=== PATIENT | female | born 1955 | race Caucasian/White ===

== ENCOUNTER 2019-07-03 15:31 | Inpatient (IN) | payer OTHER ==
[~2019-07-03] VITALS: Ht 160 cm; Wt 71.7 kg
[2019-07-03 15:37] VITALS: BP 167/102
--- NOTE | 2019-07-03 15:49 | NUR ---
64 Y/O FEMALE BIBA WITH C/C OF HYPERGLYCEMIA. PER MEDIC REPORT, PT IS HOMELESS AND NONCOMPLIANT WITH MEDICATION. PT A/OX4. PER PT ALLERGIES TO PNC. MEDICAL HX OF DM. RX METFORMIN. DENIES V/N. PER PT DIARRHEA FOR "A NUMBER OF DAYS". CURRENT BS 396. SIDE RAIL X1.
[2019-07-03] MEDS ORDERED: NACL 0.9% 1,000 ML IV ONE (15:55)
[2019-07-03] MEDS ORDERED: METF500T2 PO (16:28)
[2019-07-03 16:41] LABS: BASOPHILS # (AUTO) 0.1 K/uL (0.00-0.22); EOSINOPHILS # (AUTO) 0.1 K/uL (0-0.4); EOSINOPHILS % (AUTO) 0.6 % (0.0-4.0); HEMATOCRIT 42.5 % (36-48); HEMOGLOBIN 14.1 g/dL (12.0-16.0); LYMPHOCYTES # (AUTO) 1.6 K/uL (2.5-16.5); MEAN CORPUSCULAR HEMOGLOBIN 31 pg (27-31); MEAN CORPUSCULAR HGB CONC 33 g/dL (33-37); MEAN CORPUSCULAR VOLUME 94.4 fL (80-94); MONOCYTES # (AUTO) 0.6 K/uL (0.8-1.0); MONOCYTES % (AUTO) 6.6 % (1.7-9.3); NEUTROPHILS % (AUTO) 74.8 % (42.2-75.2); PLATELET COUNT (AUTO) 338 K/uL (140-450); RED CELL DISTRIBUTION WIDTH 13.1 % (11.6-13.7); WHITE BLOOD COUNT (AUTO) 9.3 K/uL (4.8-10.8)
[2019-07-03 17:03] LABS: ALBUMIN 2.7 g/dL (3.4-5.0); ANION GAP 12.5 (8-16); CARBON DIOXIDE 28.1 mmol/L (21-32); CREATININE 0.7 mg/dL (0.6-1.3); POTASSIUM 3.6 mmol/L (3.5-5.1); TOTAL BILIRUBIN 0.2 mg/dL (0.0-1.0)
--- NOTE | 2019-07-03 17:55 | NUR ---
pt resting in bed ; side rail x1
[2019-07-03] MEDS ORDERED: NACL 0.9% 500 ML IV ONE (18:45)
[2019-07-03] MEDS ORDERED: INSULIN REGULAR, HUMAN 100 UNIT/ML VIAL SUBQ ONE (18:45)
[2019-07-03 18:54] LABS: APPEARANCE,URINE CLOUDY (CLEAR); BILIRUBIN,URINE NEGATIVE (NEGATIVE); BLOOD, URINE TRACE-I (NEGATIVE); COLOR,URINE YELLOW (YELLOW); LEUKOCYTE ESTERASE ,URINE NEGATIVE (NEGATIVE); NITRITE, URINE NEGATIVE (NEGATIVE); UGLUCOSE 3+ (NEGATIVE)
[2019-07-03 19:14] LABS: WBC,URINE NONE SEEN /HPF (0-5)
--- NOTE | 2019-07-03 19:14 | NUR ---
REPORT GIVEN TO MICKY SANFORD
[2019-07-03] MEDS ORDERED: ONDANSETRON 4 MG/2 ML VIAL IM/IVP PRN (19:25)
[2019-07-03] MEDS ORDERED: ACETAMINOPHEN 325 MG TAB PO PRN (19:25)
[2019-07-03] MEDS ORDERED: DOCUSATE SODIUM 100 MG GELCAP PO PRN (19:25)
[2019-07-03] MEDS ORDERED: HYDROcodone/APAP 5/325 MG 1 TAB TAB PO PRN (19:25)
[2019-07-03] MEDS ORDERED: DEXTROSE 50% 50 ML SYR IVP PRN (19:25)
[2019-07-03] MEDS ORDERED: MORPHINE SULFATE 2 MG/ML SYR IVP PRN (19:25)
[2019-07-03 20:15] VITALS: BP 172/89
--- NOTE | 2019-07-03 20:15 | NUR ---
ADMITTED A 64 YEAR OLD FEMALE VIA GURNEY FROM ED. RECEIVED REPORT FROM ED NURSE MICKY. PATIENT ALERT AND ORIENTED X4. NO APPARENT DISTRESS NOTED. DENIES PAIN NOR DISCOMFORT. SKIN IS INTACT. BED ON LOW POSITION. INTRODUCED SELF AND ORIENTED TO HOSPITAL ROUTINE AND ENVIRONMENT. CALL LIGHT WITHIN REACH. WILL CONTINUE TO MONITOR. Addendum: 07/04/19 at 0134 by Olga Key RN WITH IV ON LEFT AC 20G. SALINE LOCKED. PATIENT IS HOMELESS.
--- NOTE | 2019-07-03 20:20 | NUR ---
Patient will be admitted to [facility]. TRANSFERRED VIA GURNEY. Will go to room 119B. Belongings list completed. Report to MELISSA SANFORD.
[2019-07-03 20:52] LABS: MAGNESIUM 1.7 mg/dL (1.8-2.4); PHOSPHORUS 2.7 mg/dL (2.5-4.9); THYROID STIMULATING HORMONE 1.25 uIU/mL (0.34-3.74)
--- NOTE | 2019-07-03 21:10 | NUR ---
ROUNDS DONE. PATIENT ASLEEP IN BED. NO APPARENT DISTRESS NOTED. WILL CONTINUE TO MONITOR.
[2019-07-03] MEDS ORDERED: metFORMIN 500 MG TAB PO SCH (21:30)
[2019-07-03] MEDS ORDERED: MAGNESIUM OXIDE 400 MG TAB PO SCH (21:30)
[2019-07-03] MEDS ORDERED: hydrALAZINE 10 MG TAB PO SCH (21:35)
[2019-07-03] MEDS: NACL 0.9% 1,000 ML IV SCH (21:46)
[2019-07-03] MEDS: BLOOD GLUCOSE MONITORING 1 DEV DEV FS SCH (21:57)
[2019-07-03] MEDS: INSULIN LISPRO SLIDING SCALE 100 UNITS/ML VIAL SUBQ PRN (21:58)
[2019-07-03] MEDS ORDERED: hydrALAZINE 10 MG TAB ONE (22:16)
[2019-07-03] MEDS ORDERED: hydrALAZINE 20 MG/ML VIAL IVP SCH (22:30)
[2019-07-03] MEDS ORDERED: LISINOPRIL 5 MG TAB PO SCH (22:30)
[2019-07-03 22:32] LABS: BARBITURATE, URINE NEG. ng/ml (NEG <=200); BENZODIAZEPINE, URINE NEG. ng/mL (NEG <=200); CANNABINOID, URINE NEG. ng/mL (NEG <=50); COCAINE, URINE NEG. ng/mL (NEG <=300); OPIATE, URINE NEG. ng/mL (NEG <=2000); PHENCYCLIDINE SCREEN,URINE NEG. ng/mL (NEG <=25)
--- NOTE | 2019-07-03 23:05 | NUR ---
PATIENT ASLEEP IN BED. NO APPARENT DISTRESS NOTED. VISIBLE CHEST RISE AND FALL NOTED. WILL CONTINUE TO MONITOR.
[2019-07-04] VITALS: BP 139/60
--- NOTE | 2019-07-04 01:00 | NUR ---
CHECKS DONE. PATIENT ASLEEP IN BED. BED ON LOW POSITION. NO APPARENT DISTRESS NOTED. WILL CONTINUE TO MONITOR.
--- NOTE | 2019-07-04 02:34 | NUR ---
ROUNDS DONE. PATIENT ASLEEP IN BED. NO APPARENT DISTRESS NOTED. BED ON LOW POSITION. VISIBLE CHEST RISE AND FALL NOTED. WILL CONTINUE TO MONITOR.
[2019-07-04 04:00] VITALS: BP 113/58
--- NOTE | 2019-07-04 04:30 | NUR ---
PATIENT ASLEEP IN BED. BED ON LOW POSITION. NO APPARENT DISTRESS NOTED. VISIBLE CHEST RISE AND FALL NOTED. WILL CONTINUE TO MONITOR.
[2019-07-04] MEDS: NACL 0.9% 1,000 ML IV SCH ×3 (05:09→23:08)
[2019-07-04 06:12] LABS: T4 (THYROXINE) 6.6 ug/dL (4.5-12.0)
[2019-07-04] MEDS: INSULIN LISPRO SLIDING SCALE 100 UNITS/ML VIAL SUBQ PRN ×4 (06:16→20:09)
--- NOTE | 2019-07-04 06:25 | NUR ---
PATIENT AWAKE IN BED. NO APPARENT DISTRESS NOTED. DENIES PAIN NOR DISCOMFORT. WILL CONTINUE TO MONITOR.
[2019-07-04] MEDS: BLOOD GLUCOSE MONITORING 1 DEV DEV FS SCH ×4 (06:32→20:09)
[2019-07-04 06:57] LABS: ANION GAP 13.1 (8-16); CARBON DIOXIDE 24.9 mmol/L (21-32); CREATININE 0.5 mg/dL (0.6-1.3)
[2019-07-04 07:04] LABS: BASOPHILS % (AUTO) 0.2 % (0.0-2.0); EOSINOPHILS # (AUTO) 0.1 K/uL (0-0.4); EOSINOPHILS % (AUTO) 0.8 % (0.0-4.0); HEMOGLOBIN 12.3 g/dL (12.0-16.0); LYMPHOCYTES % (AUTO) 25.7 % (20.5-51.1); MEAN CORPUSCULAR HEMOGLOBIN 31 pg (27-31); MEAN CORPUSCULAR HGB CONC 33 g/dL (33-37); MEAN CORPUSCULAR VOLUME 93.4 fL (80-94); MONOCYTES # (AUTO) 0.6 K/uL (0.8-1.0); MONOCYTES % (AUTO) 8.2 % (1.7-9.3); NEUTROPHILS # (AUTO) 5.1 K/uL (1.8-7.7); NEUTROPHILS % (AUTO) 65.1 % (42.2-75.2); PLATELET COUNT (AUTO) 301 K/uL (140-450); RED BLOOD CELL COUNT(AUTO) 3.96 MIL/uL (4.20-5.40); WHITE BLOOD COUNT (AUTO) 7.9 K/uL (4.8-10.8)
--- NOTE | 2019-07-04 07:05 | NUR ---
ENDORSED TO AM SHIFT FOR CONTINUITY OF CARE.
[2019-07-04 07:14] LABS: MAGNESIUM 1.4 mg/dL (1.8-2.4); PHOSPHORUS 2.7 mg/dL (2.5-4.9)
--- NOTE | 2019-07-04 07:32 | NUR ---
Shift report received from restaurant shift leader nurse. Pt is in bed in stable condition. Call light in reach.
[2019-07-04] MEDS ORDERED: MAG SULF 2000 MG/WATER PREMIX 100 ML IV ONE (07:35)
[2019-07-04 08:00] VITALS: BP 151/83
[2019-07-04] MEDS ORDERED: POTASSIUM CHLORIDE 10 MEQ TABER PO SCH (08:20)
[2019-07-04] MEDS ORDERED: MAG SULF 2000 MG/WATER PREMIX 50 ML IV ONE (08:20)
[2019-07-04] MEDS: metFORMIN 500 MG TAB PO SCH ×2 (08:32→17:47)
[2019-07-04] MEDS: LISINOPRIL 5 MG TAB PO SCH (08:32)
[2019-07-04] MEDS: POTASSIUM CHLORIDE 10 MEQ TABER PO SCH ×2 (08:33→20:05)
--- NOTE | 2019-07-04 08:51 | NUR ---
PATIENT HAS BEEN SCREENED AND CATEGORIZED MODERATE NUTRITION RISK. PATIENT WILL BE SEEN WITHIN 3-5 DAYS OF ADMISSION. 07/06/19 07/08/[address]
--- NOTE | 2019-07-04 10:00 | NUR ---
Pt is in bed in stable condition. Call light in reach.
[2019-07-04 12:00] VITALS: BP 161/87
--- NOTE | 2019-07-04 12:00 | NUR ---
Pt is in bed in stable condition. Call light in reach.
--- NOTE | 2019-07-04 14:02 | NUR ---
DC PLANNIN YRS OLD FEMALE PATIENT ADMITTED FROM ER WITH A DX OF UNCONTROLLED DIABETES. PT HAS A HISTORY OF DM. PT IS HOMELESS USES WHEELCHAIR TO AMBULATE. BS 400 ON ADMISSION ,REGULAR INSULIN GIVEN CONTINUE HOME MEDS DC PLAN SS EVALUATE FOR HOMELESSNESS FOR SAFE DISCHARGE. CM TO FOLLOW Addendum: 07/05/19 at 1028 by Bel Melvin CM DC PLANNING: PT EVALUATION DONE AND RECOMMEND SNF FOR PT .PATIENT AGREED TO GO TO SNF CURRENTLY PT IS HOMELESS. HIV CTS SPECIALIST HELPING WITH DISCHARGE NEEDS. BS 207 TODAY RECEIVED INSULIN COVERAGE MG LEVEL 1.5 MAG RIDER GIVEN CM TO FOLLOW Addendum: 07/05/19 at 1505 by Bel Melvin CM DC PLANNING PATIENT AGREED TO GO TO ANY SNF TO GET PHYSICAL THERAPY. [facility]ED [facility] , SPOKE WITH KARLA , [facility] CAN ACCEPT PT AND CAN GO TO ROOM 104A ACCEPTING WILL BE DR GILMAN . DC PLAN FOR TOMORROW 07/06/19 CM TO FOLLOW Addendum: 07/06/19 at 1101 by Bel Melvin DC PLANNING PT IS ACCEPTED TO [facility] ,EMELINA WITH [facility] WILL ARRANGE TRANSPORT PIECE GOODS CLERK TIME 1:30 PM NOTIFIED JASSI SANFORD
--- NOTE | 2019-07-04 14:34 | NUR ---
Pt is in bed in stable condition. Call light in reach.
[2019-07-04 16:00] VITALS: BP 159/91
--- NOTE | 2019-07-04 18:00 | NUR ---
Pt is in bed in stable condition. Call light in reach.
--- NOTE | 2019-07-04 19:30 | NUR ---
Shift report given to car shifter nurse. Pt is in bed in stable condition. Call light in reach.
--- NOTE | 2019-07-04 19:31 | NUR ---
REPORT RECEIVED FROM AM NURSE AT BEDSIDE. PT IN STABLE CONDITION. AAOX3-4. INTRODUCED SELF TO PT. BOARD UPDATED. NO COMPLAINTS OF PAIN. NO SOB. AFEBRILE. PT IS WHEELCHAIR BOUND. IV SITE R FA 24G RUNNING NS@100ML/HR PATENT AND INTACT. SKIN WARM, DRY, AND INTACT WITH NO OPEN WOUNDS. BED LOCKED IN LOW POSITION. CALL PETTIT WITHIN REACH. SAFETY PRECAUTION IN PLACE. ALL NEEDS MET AT THIS TIME.
--- NOTE | 2019-07-04 20:05 | NUR ---
K DUR GIVEN PO. BS 193. 2 UNITS OF HUMALOG GIVEN. PT TOLERATED WELL.
[2019-07-04] MEDS ORDERED: INFLUENZA VACCINE QUAD 0.5 ML SYR IMVAC PRN (22:05)
[2019-07-04] MEDS ORDERED: PNEUMOCOCCAL VACCINE 23 MCG/0.5 ML VIAL IMVAC PRN (22:05)
--- NOTE | 2019-07-04 22:05 | NUR ---
PT SLEEPING COMFORTABLY BUT AROUSABLE. NO S/S OF DISTRESS NOTED. WILL CONTINUE TO MONITOR.
--- NOTE | 2019-07-04 23:40 | NUR ---
PT SLEEPING COMFORTABLY BUT AROUSABLE. NO S/S OF DISTRESS NOTED. NO COMPLAINTS OF PAIN. NO SOB. AFEBRILE. WILL CONTINUE TO MONITOR.
[2019-07-05] VITALS: BP 142/74
--- NOTE | 2019-07-05 01:50 | NUR ---
PT AWAKE AND ALERT RETURNED FROM THE RESTROOM. NO S/S OF DISTRESS NOTED. WILL CONTINUE TO MONITOR.
--- NOTE | 2019-07-05 02:32 | NUR ---
REPORT GIVEN TO ASHLI SANOFRD. PT IN STABLE CONDITION.
--- NOTE | 2019-07-05 02:33 | NUR ---
RECEIVED PT FROM ANDREY NICOLE SHIFT NURSE FOR CONTINUITY OF CARE. PT AWAKE, ALERT ORIENTED X 4, AMBULATORY. POC DISCUSSED. PLACED IN LOW BED.
--- NOTE | 2019-07-05 04:21 | NUR ---
PT HAS NO COMPLAINTS WENT TO THE BATHROOM AMBULATORY WITH MINIMAL ASSIST. NO SOB NOTED
[2019-07-05] MEDS: BLOOD GLUCOSE MONITORING 1 DEV DEV FS SCH ×4 (06:08→20:51)
--- NOTE | 2019-07-05 06:08 | NUR ---
PT'S BS ID 171, PT IS NPO DUE FOR KIDNEY USD; DUPLEX THIS EARLY AM, THUS WAS PLACED ON NPO
[2019-07-05] MEDS: INSULIN LISPRO SLIDING SCALE 100 UNITS/ML VIAL SUBQ PRN ×4 (06:10→20:29)
[2019-07-05 06:25] LABS: BASOPHILS # (AUTO) 0.1 K/uL (0.00-0.22); BASOPHILS % (AUTO) 1.2 % (0.0-2.0); EOSINOPHILS % (AUTO) 0.3 % (0.0-4.0); HEMATOCRIT 37.8 % (36-48); HEMOGLOBIN 12.5 g/dL (12.0-16.0); LYMPHOCYTES # (AUTO) 1.8 K/uL (2.5-16.5); MEAN CORPUSCULAR HEMOGLOBIN 31 pg (27-31); MEAN CORPUSCULAR HGB CONC 33 g/dL (33-37); MONOCYTES # (AUTO) 0.6 K/uL (0.8-1.0); MONOCYTES % (AUTO) 7.2 % (1.7-9.3); NEUTROPHILS # (AUTO) 5.4 K/uL (1.8-7.7); NEUTROPHILS % (AUTO) 68.3 % (42.2-75.2); PLATELET COUNT (AUTO) 306 K/uL (140-450); RED BLOOD CELL COUNT(AUTO) 4.02 MIL/uL (4.20-5.40); RED CELL DISTRIBUTION WIDTH 13.4 % (11.6-13.7)
[2019-07-05 06:44] LABS: ANION GAP 11.6 (8-16); CARBON DIOXIDE 26.6 mmol/L (21-32); CREATININE 0.5 mg/dL (0.6-1.3); POTASSIUM 4.2 mmol/L (3.5-5.1)
[2019-07-05 06:51] LABS: MAGNESIUM 1.5 mg/dL (1.8-2.4); PHOSPHORUS 2.6 mg/dL (2.5-4.9)
--- NOTE | 2019-07-05 07:25 | NUR ---
PT SLEEPING BUT EASILY AROUSABLE BY VERBAL STIMULI, AMBULATORY, PT IN STABLE CONDITION ENDORSED TO NEXT SHIFT.
--- NOTE | 2019-07-05 07:26 | NUR ---
REPORT RECEIVED FROM TINWARE LITHOGRAPH PRESS OPERATOR NURSE FOR CONTINUATION OF CARE, PATIENT IS RESTING IN BED AAO X 4. NO SIGNS OF DISTRESS NOTED. BED IN LOW POSITION, CALL LIGHT ON AND WITHIN REACH. WILL CONTINUE TO MONITOR.
[2019-07-05 08:00] VITALS: BP 161/93
[2019-07-05] MEDS: metFORMIN 500 MG TAB PO SCH ×2 (08:00→17:26)
[2019-07-05] MEDS ORDERED: MAG SULF 2000 MG/WATER PREMIX 100 ML IV SCH (08:30)
[2019-07-05] MEDS: LISINOPRIL 5 MG TAB PO SCH (09:02)
--- NOTE | 2019-07-05 09:50 | NUR ---
PATIENT IS RESTING IN BED WITH AT BEDSIDE, PATIENT APPEARS DISHEVELED. COMPLIANT WITH MEDICATIONS, DENIES PAIN. MAG RIDER X2 ORDERED FOR LOW MAG LEVEL. OBSERVED CHEST RISE AND FALL. BED IN LOW POSITION, CALL LIGHT ON AND WITHIN REACH. WILL CONTINUE TO MONITOR.
--- NOTE | 2019-07-05 12:00 | NUR ---
PATIENT IS RESTING IN BED, 4 GRAMS OF MAGNESIUM SULFATE COMPLETED IV. PATIENT IS RESTING IN BED, DENIES PAIN AT THIS TIME. NS RUNNING AT 100 ML/HR. BED IN LOW POSITION, CALL LIGHT ON AND WITHIN REACH. WILL CONTINUE TO MONITOR.
[2019-07-05] MEDS: NACL 0.9% 1,000 ML IV SCH (12:19)
--- NOTE | 2019-07-05 14:00 | NUR ---
PATIENT IS RESTING IN BED, TOLERATING MEDICATIONS WELL, DENIES PAIN AT THIS TIME, IS AT BEDSIDE. LUNCH TOLERATED WELL. BED IN LOW POSITION, CALL LIGHT ON AND WITHIN REACH. WILL CONTINUE TO MONITOR.
--- NOTE | 2019-07-05 14:00 | NUR ---
PATIENT IS PENDING DISPO, BELONGINGS GATHERED, RESTING IN BED WITH NO SIGNS OF DISTRESS. WILL CONTINUE TO MONITOR. Addendum: 07/05/19 at 1803 by Joel Conti RN WRONG PATIENT; MEANT FOR [address].
--- NOTE | 2019-07-05 15:45 | NUR ---
DISCHARGED FROM [facility] TO FOLLOW UP WITH PCP FOR CONTINUATION OF TREATMENT. BELONGINGS ACCOUNTED FOR. MEDICATIONS EXPLAINED AND PRESCRIPTIONS GIVEN. DISCHARGED WITH FAMILY TO HOME. Addendum: 07/05/19 at 1802 by Joel Conti RN WRONG PATIENT; MEANT FOR [address].
[2019-07-05 16:00] VITALS: BP 143/84
--- NOTE | 2019-07-05 16:30 | NUR ---
PATIENT IS RESTING IN BED, SPONGE BATH GIVEN, NO SIGNS OF DISTRESS NOTED, RESTING IN BED. WILL CONTINUE TO MONITOR.
--- NOTE | 2019-07-05 19:20 | NUR ---
PATIENT REPORT HANDED OFF TO ONCOMING ELECTRIC MOTOR WINDER NURSE FOR CONTINUATION OF CARE.
--- NOTE | 2019-07-05 19:22 | NUR ---
RECEIVED PT SLEEPING, EASILY AROUSABLE, AAOX4, ABLE TO MAKE NEEDS KNOWN, DENIES ANY PAIN, NO SOB NOTED, IVF INFUSING WELL, PLAN OF CARE DISCUSSED, SAFETY MEASURES IN PLACE, CALL LIGHT WITHIN REACH, AT BEDSIDE.
--- NOTE | 2019-07-05 20:51 | NUR ---
BLOOD SUGAR CHECKED WITH 221 RESULT, COVERAGE GIVEN,BEDTIME SNACK PROVIDED, ALL NEEDS ATTENDED.
--- NOTE | 2019-07-05 23:50 | NUR ---
PT SLEEPING, EASILY AROUSABLE, VITAL SIGNS STABLE, NO SIGNS OF PAIN OR SOB, IVF INFUSING WELL, CONTINUE TO MONITOR CLOSELY.
[2019-07-06] VITALS: BP 136/67
[2019-07-06] MEDS: NACL 0.9% 1,000 ML IV SCH ×2 (01:18→08:09)
--- NOTE | 2019-07-06 02:15 | NUR ---
PT HAD EPISODE OF LOOSE STOOL, DENIES ANY PAIN, IVF INFUSING WELL, MONITORED CLOSELY.
--- NOTE | 2019-07-06 06:05 | NUR ---
PT SLEEPING, EASILY AROUSABLE, BLOOD SUGAR CHECKED WITH 149 RESULT, NO SIGNS OF PAIN OR SOB, IVF INFUSING WELL, AT BEDSIDE, MONITORED CLOSELY.
[2019-07-06] MEDS: BLOOD GLUCOSE MONITORING 1 DEV DEV FS SCH ×2 (06:39→12:29)
[2019-07-06 07:14] LABS: MAGNESIUM 1.5 mg/dL (1.8-2.4); PHOSPHORUS 2.7 mg/dL (2.5-4.9)
--- NOTE | 2019-07-06 07:19 | NUR ---
REPORT RECEIVED FROM INFORMATION CODER NURSE FOR CONTINUITY OF CARE, PATIENT IS RESTING IN BED, BED IN LOW POSITION, DENIES PAIN AT THIS TIME, DISCHARGE ORDER PER MD, PREPARING FOR DISPO TODAY. WILL CONTINUE TO MONITOR.
--- NOTE | 2019-07-06 07:20 | NUR ---
PT SLEEPING, NO SIGNS OF DISTRESS, REPORT GIVEN TO CLARIBEL KEENE FOR CONTINUITY OF CARE.
[2019-07-06 07:38] LABS: BASOPHILS % (AUTO) 0.3 % (0.0-2.0); EOSINOPHILS % (AUTO) 0.4 % (0.0-4.0); HEMATOCRIT 35.6 % (36-48); HEMOGLOBIN 11.8 g/dL (12.0-16.0); LYMPHOCYTES # (AUTO) 1.4 K/uL (2.5-16.5); LYMPHOCYTES % (AUTO) 17.5 % (20.5-51.1); MEAN CORPUSCULAR HEMOGLOBIN 31 pg (27-31); MEAN CORPUSCULAR HGB CONC 33 g/dL (33-37); MEAN CORPUSCULAR VOLUME 93.9 fL (80-94); MONOCYTES # (AUTO) 0.7 K/uL (0.8-1.0); MONOCYTES % (AUTO) 8.3 % (1.7-9.3); NEUTROPHILS # (AUTO) 5.9 K/uL (1.8-7.7); NEUTROPHILS % (AUTO) 73.5 % (42.2-75.2); PLATELET COUNT (AUTO) 294 K/uL (140-450); RED BLOOD CELL COUNT(AUTO) 3.79 MIL/uL (4.20-5.40); RED CELL DISTRIBUTION WIDTH 13.3 % (11.6-13.7); WHITE BLOOD COUNT (AUTO) 8.1 K/uL (4.8-10.8)
[2019-07-06 08:00] VITALS: BP 163/84
[2019-07-06 08:05] LABS: CARBON DIOXIDE 23.5 mmol/L (21-32); CREATININE 0.5 mg/dL (0.6-1.3); POTASSIUM 3.5 mmol/L (3.5-5.1)
[2019-07-06] MEDS: metFORMIN 500 MG TAB PO SCH (08:51)
[2019-07-06] MEDS: LISINOPRIL 5 MG TAB PO SCH (08:51)
[2019-07-06] MEDS ORDERED: METF500T PO (09:22)
[2019-07-06] MEDS ORDERED: LISI-424 PO (09:22)
--- NOTE | 2019-07-06 09:50 | NUR ---
ROUNDS MADE, PATIENT IS RESTING IN BED WITH AT BEDSIDE. DISCHARGE ORDER IN FOR TODAY, PREPARING FOR DISPO. PATIENT STATES NO CONCERNS REGARDING DISCHARGE. BED IN LOW POSITION, CALL LIGHT ON AND WITHIN REACH, WILL CONTINUE TO MONITOR.
[2019-07-06] MEDS ORDERED: PNEUMOCOCCAL VACCINE 23 MCG/0.5 ML VIAL IMVAC SCH (10:55)
[2019-07-06] MEDS ORDERED: INFLUENZA VACCINE QUAD 0.5 ML SYR IMVAC PRN (10:55)
[2019-07-06 10:56] VITALS: BP 163/84
--- NOTE | 2019-07-06 12:00 | NUR ---
PATIENT IS RESTING IN BED WAITING FOR TRANSPORT TO TRANSFER TO [facility]. PATIENT IS RESTING IN BED, BED IN LOW POSITION, CALL LIGHT ON AND WITHIN REACH. WILL CONTINUE TO MONITOR.
[2019-07-06] MEDS: INSULIN LISPRO SLIDING SCALE 100 UNITS/ML VIAL SUBQ PRN (12:53)
--- NOTE | 2019-07-06 14:20 | NUR ---
TRANSPORT CAME FROM [facility] AND PICKED UP ML, IV WAS REMOVED, NAME TAGS REMOVED, GOWN CHANGED, PATIENT BELONGINGS ACCOUNTED FOR. PATIENT WAS DISCHARGED FROM [facility] FOR CONTINUATION OF CARE AT [facility] TO CONTINUE PHYSICAL THERAPY. DISCHARGE PAPERWORK GIVEN TO PATIENT.
== END 2019-07-06 14:20 | DRG 637 ==
LOC: MED 15:31 → MTU 19:29
PROVIDERS: ADMIT General Practice; ATTEND General Practice
PROC: 3E0234Z Introduction of Serum, Toxoid and Vaccine into Muscle, Percutaneous Approach (ICD-10-PCS; principal; 2019-07-04)
DX: E11.00 Type 2 diabetes mellitus with hyperosmolarity without nonketotic hyperglycemic-hyperosmolar coma (NKHHC) (principal); E43 Unspecified severe protein-calorie malnutrition; E11.65 Type 2 diabetes mellitus with hyperglycemia; F15.90 Other stimulant use, unspecified, uncomplicated; I10 Essential (primary) hypertension; F17.210 Nicotine dependence, cigarettes, uncomplicated; E83.42 Hypomagnesemia; F12.99 Cannabis use, unspecified with unspecified cannabis-induced disorder; Z68.28 Body mass index [BMI] 28.0-28.9, adult; Z23 Encounter for immunization; Z59.0 Homelessness
CPT/HCPCS: 36415; 71045; 80048; 80053; 80305; 81001; 81025; 82948; 83036; 83735; 83880; 84100; 84436; 84443; 84484; 85025; 85610; 85730; 87040; 87081; 87086; 90732; 93005; 96360; 96361; 96372; 97110; 97116; 97530; 99285; J1815; J3475; J7030; Q0092